=== PATIENT | female | born 1940 ===

== ENCOUNTER 2019-04-22 09:44 | Emergency (ER) | payer OTHER ==
[~2019-04-22] VITALS: Ht 157.5 cm; Wt 77.1 kg
[2019-04-22] MEDS ORDERED: DIOVAN160 M1 (10:01)
== END 2019-04-22 11:52 | disposition home or self-care (01) ==
LOC: ER 09:44
DX: R42 Dizziness and giddiness (principal); I10 Essential (primary) hypertension